=== PATIENT | female | born 1965 ===

== ENCOUNTER 2022-07-21 11:05 | Day surgery (SDC) | payer OTHER ==
[~2022-07-21] VITALS: Ht 165.1 cm; Wt 50.9 kg
[2022-07-21] MEDS ORDERED: FAMO10 (11:18)
[2022-07-21] MEDS ORDERED: PANT20 (11:19)
[2022-07-21] MEDS ORDERED: LEVSOD75 (11:19)
[2022-07-21] MEDS ORDERED: Robaxin750 MG (11:19)
[2022-07-21] MEDS ORDERED: Prozac20 MG (11:21)
[2022-07-21] MEDS ORDERED: ATOR10 (11:21)
[2022-07-21] MEDS ORDERED: OXYB5ER (11:21)
[2022-07-21] MEDS ORDERED: Cyclobenzaprine5 MG (11:22)
[2022-07-21] MEDS ORDERED: CLIMARA1 EACH (11:22)
[2022-07-21 12:58] VITALS: BP 128/78
== END 2022-07-21 12:50 | disposition home or self-care (01) ==
LOC: ORSCSDS 11:05
PROVIDERS: Internal Medicine Gastroenterology
PROC: 0DJ08ZZ Inspection of Upper Intestinal Tract, Via Natural or Artificial Opening Endoscopic (ICD-10-PCS; principal; 2022-07-21 12:15)
DX: K21.9 Gastro-esophageal reflux disease without esophagitis (principal); K44.9 Diaphragmatic hernia without obstruction or gangrene; Z79.899 Other long term (current) drug therapy
CPT/HCPCS: J2704; J7120